=== PATIENT | male | born 1945 | race Caucasian/White ===

== ENCOUNTER 2022-08-27 17:55 | Emergency (ER) | payer MEDICARE, SELFPAY ==
[2022-08-27 18:13] VITALS: BP 170/105; PULSE 78; RESP 16; TEMP 36.4; O2SAT 96; BMI 28.1
[2022-08-27] MEDS: tetanus-dipt-pertussis 0.5 mL SDV IM (19:44)
[2022-08-27] MEDS: neomycin-poly-bacitracin oint 28 gm 1 APPLIC TOPICAL (19:44)
--- NOTE | 2022-08-27 20:13 | PC.NURSE ---
Per Katarina Blood SHELL REPRINT OPERATOR I faxed a [employer] Dog Bite form to the fax provided on their website.
--- NOTE | 2022-08-27 20:20 | ED_ITS ---
HPI - Animal Bite General: Chief Complaint: Animal Bite Stated Complaint: Dog Bite Time Seen by Provider: 08/27/22 18:18 History of Present Illness: Patient is in today for a dog bite. He reports that he was arriving to an [employer] [place] and he had instructions to enter through the green gait on the right. He reports he started to enter through the small gait and the jennifer rosales dog bit his foot. He reports that he did contact the sales coordinator of the [employer] property who said that he entered through the wrong gate. He states that the sales coordinator told him the dog was up-to-date on rabies vaccination from approximately 16 months ago in [place]. The patient states he has not had a tetanus vaccine in decades. He states that he wants updated on tetanus and everything documented as he will pursue legal action against the sales coordinator Associated symptoms: Deny chills or fever(s) Review of Systems Const: Denies: fever(s), chills or body aches Resp: Denies: dyspnea Skin/Breast: Reports: other (Dog bite left foot) Physical Exam Const: COMMON NORMALS: no acute distress, patient oriented x3 and alert Resp: COMMON NORMALS: normal respiratory effort and No use of accessory musc les Extremity: NARRATIVE EXTREMITY EXAM: Full range of motion of left great toe and left foot and ankle. Pedal pulses intact and palpable to left foot. There is a small superficial abrasion to the dorsum of the left great toe which patient states is from the dog bite. No bleeding, oozing. Neuro: COMMON NORMALS: patient oriented x3 SENSORIUM/ORIENTATION: Yes alert Skin: NARRATIVE SKIN EXAM: Superficial abrasion dorsum of the left great toe patient states from dog bite Course Vital Signs: Vital signs: Vital Signs Temperature 97.5 F L 08/27/22 18:13 Pulse Rate 78 08/27/22 18:13 Respiratory Rate 16 08/27/22 18:13 Blood Pressure 170/105 08/27/22 18:13 Pulse Oximetry 96 08/27/22 18:13 Oxygen Delivery Me thod Room Air 08/27/22 18:13 MDM - Animal Bite Medical Decision Making Dog bite report form completed and faxed to the [facility] of health and Senior services. Given that the sales coordinator reports the dog is up-to-date on rabies vaccination a lengthy discussion was held with the patient and he is agreeable to follow-up with the [facility] and Senior services to confirm vaccination status. If they are unable to confirm vaccination status the patient understands the risk of rabies and the need for post exposure prophylactic rabies vaccination series. The wound was cleaned today and triple antibiotic ointment applied. The patient is allergic to amoxicillin so he is started on clindamycin and Bactrim prophylactic antibiotics first dose given in here today prescription sent with patient to start tomorrow. Tetanus was updated today. Patient is discharged in stable condition. Advise follow-up with primary care as needed. Advised to monitor closely for signs and symptoms of infection. Advised of the need to continue follow-up with [facility] and [facility] services for the dog bite. Discharge Plan Discharge Patient Disposition: Home Clinical Impression: Dog bite Condition: Stable Prescriptions: New Bactrim DS 800-160 mg tablet 1 tab PO BID 7 Days Qty: 14 0RF clindamycin HCl 300 mg capsule 300 mg PO TID 7 Days Qty: 21 0RF Discharge Orders: Discharge ED (Routine); Ordered 08/27/22 Ordered By: Katarina Blood Discharge Diet: Usual diet Discharge Activity: Resume usual activity Patient Instructions: Animal Bite (ED) Activity Restrictions/Additional Instructions: You your tetanus vaccination was updated today. Start the antibiotics tomorrow as your first dose was given tonight in the ER. Take the antibiotics as directed through completion. Keep the wound clean and dry and monitor for signs of infection. Follow-up with the [facility] and Senior services tomorrow regarding your dog bite. They will help you to determine and verify vaccination information on the dog and what steps should be taken moving forward with quarantine if needed. If it is determined that the vaccine is not up-to-date for the dog then you should return to the ER to start rabies postexposure prophylaxis series. Coding Level of Care Code ED Epic Cupid Analyst for Paulino Davidson
--- NOTE | 2022-08-28 13:45 | DCPLANNER ---
Patient was called due to no primary care physician - declines at this time, does not live in the area
== END 2022-08-27 20:15 | disposition home or self-care (01) ==
PROVIDERS: Emergency Provider Nurse Practitioner Family
DX: S91.352A Open bite, left foot, initial encounter (principal); W54.0XXA Bitten by dog, initial encounter; Z23 Encounter for immunization
CPT/HCPCS: 90471; 90715; 99283